=== PATIENT | female | born 1945 | race Caucasian/White ===

== ENCOUNTER 2017-05-08 21:37 | Inpatient (IN) | payer MEDICARE ==
[~2017-05-08] VITALS: Ht 170.2 cm; Wt 72.6 kg
[~2017-05-08 21:37] MED LIST: ASPIR 8181 M1 PO; CEPHALEXIN 250250 M1 PO; CIPRO500 MG PO; CYCLOBENZAPRINE5 MG PO; HYDROCODONE-AP1 EAC6 PO; LIPITOR 20 MG T20 M1 PO; TOBREX3.5 GM OPHTHALMIC; TYLENOL PM EX-1 EACH PO; XARELTO10 MG PO; ZOCOR20 MG PO
[2017-05-08 21:47] VITALS: BP 147/69
[2017-05-08 22:09] LABS: ABSOLUTE BASOPHILS 0.1 thou/uL (0.0-0.2); ABSOLUTE EOSINOPHILS 0.1 thou/uL (0.0-0.7); ABSOLUTE LYMPHOCYTES 2.4 thou/uL (0.8-5.3); ABSOLUTE MONOCYTES 0.6 thou/uL (0.0-1.2); ABSOLUTE NEUTROPHILS 4.9 thou/uL (1.6-8.1); EOSINOPHILS 1.2 %; HEMATOCRIT 37.9 % (37.0-47.0); HEMOGLOBIN 12.9 gm/dL (12.0-15.0); LYMPHOCYTES 30.2 %; MCH 30.2 pg (26.0-34.0); MCHC 33.9 g/dL (28.0-37.0); MONOCYTES 6.8 %; MPV 7.3 fl. (7.2-11.1); NUCLEATED RBCS 0 /100WBC; PLATELET COUNT* 206 thou/uL (150-400); POLYS 60.8 %; RBC 4.26 mil/uL (4.20-5.00); RDW-CV 13.4 % (10.5-14.5); WBC 8.1 thou/uL (4.0-11.0)
[2017-05-08 22:20] LABS: ANION GAP 6 mmol/L (7-16); BUN 17 mg/dL (7-18); CALCIUM 8.8 mg/dL (8.5-10.1); CHLORIDE 104 mmol/L (98-107); CO2 29 mmol/L (21-32); CREATININE 0.9 mg/dL (0.6-1.3); GLUCOSE 110 mg/dL (70-99); SODIUM 139 mmol/L (136-145)
[2017-05-08 22:22] LABS: APTT 27.6 Seconds (25.0-31.3); PROTIME 10.2 Seconds (9.20-11.50)
[2017-05-08 22:30] LABS: ALBUMIN 3.5 g/dL (3.4-5.0); ALKALINE PHOSPHATASE 58 U/L (46-116); LIPASE 91 U/L (73-393); MAGNESIUM 2.3 mg/dL (1.8-2.4); NT-PRO BRAIN NAT PEPTIDE 101 pg/mL (<300); SGOT 31 U/L (15-37); SGPT 50 U/L (30-65); TOTAL BILIRUBIN 0.4 mg/dL (<0.1-1.0); TROPONIN-I LEVEL <0.06 ng/mL (<0.06)
[2017-05-08 22:31] LABS: INFLUENZA A ANTIGEN None Detected (None Detect); INFLUENZA B ANTIGEN None Detected (None Detect)
[2017-05-08 22:59] VITALS: BP 129/46
[2017-05-08 23:05] VITALS: BP 145/55
[2017-05-09 08:00] VITALS: BP 130/56
--- NOTE | 2017-05-09 14:43 | EKG ---
[place] [address] ELECTROCARDIOGRAM REPORT Name: MARISOL BUSTOS Room: [address] ADM IN M.R.#: [id number] Admission: 05/08/17 Attend Phys: Jude Quijano MD Discharge: Date of : 45 Report #: [id number] THIS REPORT FOR: //name// [facility] ED Test Date: 2017-05-08 Test Time: 21:47:00 Pat Name: MARISOL BUSTOS Department: Room: [facility] Gender: F [employer] [place]: : 1945 Requested By: Jona Contreras Order Number: [id number] MD: Jose De Jesus Levine Measurements Intervals [place] Rate: 69 P: 55 SC: 190 QRS: 54 QRSD: 130 T: 77 QT: 387 QTc: 415 Interpretive Statements Sinus rhythm No previous ECG available for comparison Electronically Signed On 05-09-2017 14:43:29 [employer] by Jose De Jesus Levine [email or web address] <ELECTRONICALLY SIGNED> By: Jose De Jesus Levine MD, [facility] 05/09/17 1443 2147 2147 Jose De Jesus Levine MD, FAC /EPI
[2017-05-09 15:30] VITALS: BP 126/58
[2017-05-10 00:44] VITALS: BP 177/61
[2017-05-10 10:15] VITALS: BP 126/57
[2017-05-10 16:46] VITALS: BP 135/56
[2017-05-10 20:00] VITALS: BP 121/68
[2017-05-11 08:00] VITALS: BP 136/57
[2017-05-11] MEDS ORDERED: TYLENOL EXTRA500 MG PO (13:36)
[2017-05-11] MEDS ORDERED: DUONEB 2.5-0.5 M3 ML INH (13:37)
[2017-05-11] MEDS ORDERED: PREDNISONE 20 M20 MG PO (13:38)
[2017-05-11] MEDS ORDERED: LEVAQUIN 500 M500 M2 PO (13:40)
[2017-05-11] MEDS ORDERED: COMBIVENT RESPIM4 GM INH (13:42)
[2017-05-11 13:45] VITALS: BP 136/57
== END 2017-05-11 13:45 | disposition home or self-care (01) | DRG 189 ==
LOC: M.ERS 21:37 → M.3W 22:25 → M.TBA-ER 22:25 → M.3W 22:53
PROVIDERS: Family Medicine; ADMIT Internal Medicine
DX: J96.01 Acute respiratory failure with hypoxia (principal); J44.1 Chronic obstructive pulmonary disease with (acute) exacerbation; F17.210 Nicotine dependence, cigarettes, uncomplicated; Z98.49 Cataract extraction status, unspecified eye; Z82.49 Family history of ischemic heart disease and other diseases of the circulatory system

== ENCOUNTER → 2019-06-09 | Outpatient (CLI) | payer MEDICARE ==
[~2019-06-09] MED LIST changes: +COMBIVENT RESPIM4 GM INH; +DUONEB 2.5-0.5 M3 ML INH; +LEVAQUIN 500 M500 M2 PO; +PREDNISONE 20 M20 MG PO; +TYLENOL EXTRA500 MG PO
== END ==
LOC: M.RAD 05-24 12:54
DX: Z12.31 Encounter for screening mammogram for malignant neoplasm of breast (principal); Z13.820 Encounter for screening for osteoporosis; M85.88 Other specified disorders of bone density and structure, other site; E28.39 Other primary ovarian failure; M54.13 Radiculopathy, cervicothoracic region; Z78.0 Asymptomatic menopausal state